=== PATIENT | male | born 1955 | race Caucasian/White ===

== ENCOUNTER 2025-04-11 20:27 | Emergency (ER) | payer SELFPAY ==
[~2025-04-11] VITALS: Ht 182.9 cm; Wt 73.0 kg
[2025-04-11 20:29] VITALS: O2SAT 100
[2025-04-11] MEDS: IBUPROFEN 600MG TABLET PO ONE (22:12)
[2025-04-11 23:57] LABS: BASOPHILS % 1.0 % (0.0-2.0); EOSINOPHILS % 4.0 % (0.0-5.0); HEMATOCRIT. 34.3 % (42.0-52.0); HEMOGLOBIN. 11.5 g/dL (14.0-18.0); LYMPHOCYTES % 21.0 % (20.0-50.0); MEAN PLATELET VOLUME 8.5 fl (7.4-10.4); MONOCYTES % 7.4 % (2.0-8.0); NEUTROPHILS % 66.6 % (40.0-76.0); PLATELET 276 x1000/uL (130-400); RED BLOOD CELL COUNT 3.71 mill/uL (4.7-6.1); RED CELL DISTRIBUTION WIDTH 13.9 % (11.6-14.6)
[2025-04-12] LABS: CREATININE 1.3 mg/dL (0.6-1.3); UREA NITROGEN BLOOD 25.0 mg/dL (9-23)
[2025-04-12 01:10] VITALS: BP 136/67; PULSE 63; RESP 18; TEMP 36.8; O2SAT 99
== END 2025-04-12 01:10 | disposition home or self-care (01) ==
LOC: ER 20:27
DX: G89.29 Other chronic pain (principal); M79.18 Myalgia, other site; R11.2 Nausea with vomiting, unspecified; Z59.00 Homelessness unspecified
CPT/HCPCS: 36415; 80048; 85025; 99283